=== PATIENT | male | born 1945 | race Caucasian/White ===

== ENCOUNTER 2023-10-18 08:38 | Emergency (ER) | payer OTHER, SELFPAY ==
[2023-10-18 08:40] VITALS: BP 145/96
--- NOTE | 2023-10-18 09:27 | ED.GENMED ---
History of Present Illness
General
Chief Complaint: Back Pain
Source: patient
Exam Limitations: none
Time Seen by Provider: 10/18/23 09:12
Nursing documentation reviewed up to this point in time: agreed with
Travel History
Have you had any contact with someone who has COVID-19?: No
Do you have any symptoms of coronavirus? Fever > 100 degrees, chills, cough, shortness of breath, sore throat, loss of taste or smell, muscle aches, or headache?: No
History of Present Illness
History of Present Illness:
78-year-old male with history of prostate cancer s/p TURP, appendectomy patient from home stating he developed left flank discomfort 8 days ago, waxing and waning, constant. Used heat and Aleve with no relief. Worse past 3 nights waking him several
times a night. Pain now 2/10. Also feels bloated. Denies n/v/d/c. Denies UTI symptoms.
Past History
Past History
ED Past Medical History: Cancer (s/p Prostate CA)
ED Past Surgical History: Orthopedic and Urological (TURP)
Social History
Tobacco: Non-smoker
Personal:
Living: with family
Employment: Retired
Review of Systems
Review of Systems
Allergies reviewed?: Yes
All Other Systems: ROS reviewed and negative except as documented in HPI and ROS
Constitutional: Denies fever or fatigue
Respiratory: Denies trouble breathing
Cardiac: Denies chest pain
ABD/GI: Denies abdominal pain, nausea, vomiting, diarrhea or anorexia
: Reports flank pain (Left); Denies dysuria, frequency, incontinence, difficulty voiding, urgency or dark urine
Musculoskeletal: Reports no symptoms
Skin: Reports no symptoms
Neurological: Reports no symptoms
Phy Exam
Physical Exam
Physical Exam:
GENERAL: No acute distress. A&Ox3.
CONSTITUTIONAL: Afebrile.
RESPIRATORY: Regular respirations, nonlabored, lungs clear.
CARDIOVASCULAR: Regular rate and rhythm, no murmurs, no rubs.
GI: Soft, nontender, normal BS. Left flank tender to percussion. Rest of back nontender. Ambulating well, full ROM
MUSCULOSKELETAL: Moves with ease. Well perfused.
SKIN: Warm, dry, pink
PSYCH: Normal mood and affect. Well kept, interactive and appropriate
NEUROLOGIC: Awake, alert and oriented. No focal neurological deficits
Course
Orders/Labs/Results
Orders:
Orders
10/18/23 09:33
IV Insert/Care/Rem.- Treatment PRN
10/18/23 09:34
CT Abd/pel Without Iv Or Oral Urgent
Comment:
Reason For Exam: Left flank pain
0.9% Sodium Chloride 1000 ml [Nss] 1,000 ml IV BOLUS
10/18/23 09:38
Complete Blood Count/With Diff Urgent
Comprehensive Metabolic Panel Urgent
Urinalysis Reflex To Culture Urgent
Date Specimen was Collected: 10/18/23
Time Specimen was Collected: 09:37
Urine Microscopic Reflex Cult Urgent
Abnormal Lab Results
10/18/23
09:38
RBC 4.64 L 10^6/uL
(4.70-6.10)
Absolute Neuts (auto) 8.5 H 10^3/uL
(1.4-6.5)
Absolute Lymphs (auto) 0.5 L 10^3/uL
(1.2-3.4)
Absolute Monos (auto) 1.1 H 10^3/uL
(0.1-0.6)
Neutrophils % 83.3 H %
(42.2-75.2)
Lymphocytes % 5.0 L %
(20.5-51.1)
Monocytes % 10.7 H %
(1.7-9.3)
BUN 28 H mg/dl
(9-20)
Creatinine 1.6 H mg/dL
(0.7-1.3)
Glucose 102 H mg/dl
(70-99)
Total Bilirubin 1.4 H mg/dl
(0.2-1.3)
Urine Ketones 1+ A
(Negative)
Leukocyte Esterase Rfl Trace A
(Negative)
Urine Bacteria (Reflex) Few A
(Negative)
10/18/23 09:38
10/18/23 09:38
Vital Signs
Initial and Last Documented VS:
Initial Vital Signs
Temp Pulse Resp BP Pulse Ox
98.1 F 78 18 145/96 97
10/18/23 08:40 10/18/23 08:40 10/18/23 08:40 10/18/23 08:40 10/18/23 08:40
Last Documented Vital Signs
Temp Pulse Resp BP Pulse Ox
98.1 F 69 18 143/73 96
10/18/23 08:40 10/18/23 12:10 10/18/23 12:10 10/18/23 12:10 10/18/23 12:10
MDM/Problems Addressed
Differential Diagnosis Includes:
Kidney/ureteral stone, UTI, musculoskeletal pain
MDM/Problems Addressed:
78-year-old male with history of prostate cancer s/p TURP, appendectomy patient from home stating he developed left flank discomfort 8 days ago, waxing and waning, constant. Used heat and Aleve with no relief. Worse past 3 nights waking him several
times a night. Pain now 2/10. Also feels bloated. Denies n/v/d/c. Denies UTI symptoms.
Afebrile, NAD
10/18/2023 1058 AM
CBC with no clinically significant abnormality
CMP: BUN/creat 28/1.6
U/A: No sign of infection, negative occult blood
CT abdomen pelvis radiology report read: IMPRESSION:
1.). There is 2 mm obstructing calculus at the intramural portion of the left uterovesical junction associated with moderate left hydronephrosis, moderate left hydroureter and mild left perinephric edema.
2). There is 1 mm nonobstructing calculus at the lower pole of the right kidney.
3). Diverticuli are present in the colon with no CT evidence of diverticulitis
4). 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
10/18/2023 1223 PM
Patient's pain is minimal
Patient has a urologist at [facility] he will f/u with
Rx for Flomax and Taft sent to his pharmacy
Patient ambulated out with normal gait upon discharge.
*Critical Care Note
Total Time (30-74mins, 75-104mins- exclusive of procedures): Not Applicable
ED Attending Note
-
Portions of this chart may have been created with voice recognition software.� Occasional wrong word or��sound alike� substitutions may have occurred due to the inherent limitations of voice recognition software.
Discharge Plan
Departure
Patient Disposition: Home (Routine Discharge)
Date of Disposition: 10/18/23
Time of Disposition: 12:15
Patient with high blood pressure during this ER visit?: No
Condition: Good
Discharge Problem:
Calculus of distal left ureter
Instructions: How to Strain Your Urine
Prescriptions:
New
hydrocodone-acetaminophen 5-325 mg tablet
1 tab PO TID PRN (Reason: Pain) Qty: 10 0RF
tamsulosin [Flomax] 0.4 mg capsule
0.4 mg PO DAILY Qty: 7 0RF
Referrals:
Your, Urologist [Other] - Call in 1-3 days for appt
Benita Lopez MD [Family Provider] -
Activity Restrictions/Additional Instructions:
As we discussed, strain your urine and if you see a stone put in the container provided and take it to your urology visit. Aleve or ibuprofen as directed on the label as needed for mild to moderate pain and I sent a prescription for a narcotic
Taft or hydrocodone with Tylenol to your pharmacy to use as needed for worse pain.
Return here immediately for fever, chills, vomiting, increasing pain or feeling sicker in any way.
Call your urologist Friday morning and make follow-up appointment.
Interventions
Interventions:
*Risk Screen - Suicide Last Done: 10/18/23 12:24
*General Assessment Last Done: 10/18/23 08:40
*Neglect/Abuse Screening Last Done: 10/18/23 12:24
ED- Fall Risk Assessment Last Done: 10/18/23 12:24
*ED COVID-19 Vaccine History Last Done: 10/18/23 08:40
*Nursing Disposition Last Done: 10/18/23 12:24
ED-Musculoskeletal Assessment Last Done: 10/18/23 12:25
Discharge Date and Time
Discharge Date/Time: 10/18/23 12:25
[2023-10-18] MEDS: NSS 1000 IV (09:38)
[2023-10-18 09:48] LABS: % Basophils 0.2 % (0-2); % Eosinophils 0.5 % (0-6); % Immature Granulocytes 0.3 % (0-0.5); % Monocytes 10.7 % (1.7-9.3); % Neutrophils 83.3 % (42.2-75.2); Absolute Eosinophils 0.1 10^3/uL (0-0.7); Absolute Lymphocytes 0.5 10^3/uL (1.2-3.4); Absolute Monocytes 1.1 10^3/uL (0.1-0.6); Absolute Neutrophils 8.5 10^3/uL (1.4-6.5); Hematocrit 41.2 % (39.0-52.0); Hemoglobin 14.3 g/dL (13.0-18.0); Mean Corp Hgb Conc. 34.7 g/dL (33.0-37.0); Mean Corpuscular Hgb 30.8 pg (27.0-31.0); Mean Corpuscular Volume 88.8 fL (80.0-94.0); Mean Platelet Volume 9.3 fL (7.4-10.4); Nucleated Red Blood Cells % 0 % (-); Platelet Count 251 10^3/uL (130-400); Red Blood Cell Count 4.64 10^6/uL (4.70-6.10); Red Cell Dist. Width 12.2 % (11.5-14.5); White Blood Cell Count 10.2 10^3/uL (4.8-10.8)
[2023-10-18 09:59] LABS: Urine Albumin Trace (Neg - Trace); Urine Bilirubin Negative (Negative); Urine Character Clear (Clear); Urine Color Yellow; Urine Glucose Negative (Negative); Urine Ketone 1+ (Negative); Urine Leukocyte Trace (Negative); Urine Nitrite Negative (Negative); Urine Occult Blood Negative (Negative); Urine Urobilinogen Negative (Neg - 1+)
[2023-10-18 10:14] LABS: ALT (SGPT) 27 U/L (0-50); AST (SGOT) 26 U/L (17-59); Albumin 3.6 g/dl (3.5-5.0); Alkaline Phosphatase 86 U/L (38-126); Blood Urea Nitrogen 28 mg/dl (9-20); Carbon Dioxide 23 mmol/L (22-30); Chloride 103 mmol/L (98-107); Glucose 102 mg/dl (70-99); Potassium 4.3 mmol/L (3.5-5.1); Sodium 139 mmol/L (135-145); Total Bilirubin 1.4 mg/dl (0.2-1.3); Total Protein 6.3 g/dl (6.3-8.2); eGFR 44.38
[2023-10-18 11:25] LABS: Urine Mucus Few
[2023-10-18 11:26] LABS: Urine Amorphous Seen; Urine Red Blood Cell 0-2 /HPF (0-2); Urine Squamous Cell 0-2 /LPF (Few)
[2023-10-18 11:27] LABS: Urine Bacteria Few (Negative)
[2023-10-18 12:10] VITALS: BP 143/73
== END 2023-10-18 12:25 | disposition home or self-care (01) ==
LOC: EMR 08:38
PROVIDERS: Registered Nurse; EMERGENCY PHYSICIAN Emergency Medicine; FAMILY PHYSICIAN Internal Medicine Geriatric Medicine
DX: N13.2 Hydronephrosis with renal and ureteral calculous obstruction (principal); N13.6 Pyonephrosis; R14.0 Abdominal distension (gaseous); M51.36 Other intervertebral disc degeneration, lumbar region; Z85.46 Personal history of malignant neoplasm of prostate; Z91.013 Allergy to seafood; Z91.048 Other nonmedicinal substance allergy status
CPT/HCPCS: 99284; 96360; 74176; 80053; 81003; 81015; 85025

== ENCOUNTER 2025-01-25 06:23 | Day surgery (SDC) | payer OTHER, SELFPAY | END 2025-01-25 10:59 | disposition home or self-care (01) | LOC: GI 06:23 | PROVIDERS: ATTENDING PHYSICIAN Internal Medicine Gastroenterology | DX: K44.9 Diaphragmatic hernia without obstruction or gangrene (principal); K29.70 Gastritis, unspecified, without bleeding; K21.9 Gastro-esophageal reflux disease without esophagitis; R14.2 Eructation; K29.50 Unspecified chronic gastritis without bleeding; B96.81 Helicobacter pylori [H. pylori] as the cause of diseases classified elsewhere; K31.A19 Gastric intestinal metaplasia without dysplasia, unspecified site | CPT/HCPCS: 43239; 88305; 88342 ==

== ENCOUNTER 2025-06-06 06:25 | Day surgery (SDC) | payer OTHER, SELFPAY | END 2025-06-06 10:43 | disposition home or self-care (01) | LOC: GI 06:25 | PROVIDERS: ATTENDING PHYSICIAN Internal Medicine Gastroenterology | DX: K29.70 Gastritis, unspecified, without bleeding (principal); K22.89 Other specified disease of esophagus; K44.9 Diaphragmatic hernia without obstruction or gangrene; K31.A19 Gastric intestinal metaplasia without dysplasia, unspecified site; Z87.19 Personal history of other diseases of the digestive system | CPT/HCPCS: 43239; 88305; 88342 ==